=== PATIENT | male | born 1935 | race Caucasian/White ===

== ENCOUNTER 2017-07-22 12:32 | Emergency (ER) | payer MEDICARE, OTHER ==
[~2017-07-22] VITALS: Ht 188 cm; Wt 86.0 kg
[2017-07-22] MEDS ORDERED: METFORMIN500 MG PO (13:04)
[2017-07-22] MEDS ORDERED: FLUOXETINE10 M2 PO (13:04)
[2017-07-22] MEDS ORDERED: TYLENOL 500MG TAB PO (13:05)
[2017-07-22] MEDS ORDERED: TAMSULOSIN0.4 MG PO (13:05)
[2017-07-22] MEDS ORDERED: LIPITOR20 MG PO (13:06)
[2017-07-22] MEDS ORDERED: TRIAMCINOLON0.11 EX (13:07)
[2017-07-22] MEDS ORDERED: CEPHALEXIN500 M1 PO (15:45)
[2017-07-22 16:25] VITALS: BP 146/63
== END 2017-07-22 16:25 | disposition home or self-care (01) ==
LOC: ED 12:32
PROC: 0HQ1XZZ Repair Face Skin, External Approach (ICD-10-PCS; principal; 2017-07-22)
DX: S01.81XA Laceration without foreign body of other part of head, initial encounter (principal); S60.511A Abrasion of right hand, initial encounter; I10 Essential (primary) hypertension; E11.9 Type 2 diabetes mellitus without complications; W16.42XA Fall into unspecified water causing other injury, initial encounter; Y92.007 Garden or yard of unspecified non-institutional (private) residence as the place of occurrence of the external cause